=== PATIENT | male | born 1950 | race Caucasian/White ===

== ENCOUNTER 2018-04-11 10:14 | Inpatient (IN) | payer MEDICARE ==
[~2018-04-11] VITALS: Ht 193 cm; Wt 68.1 kg
--- NOTE | 2018-04-11 10:48 | NUR ---
PT C/O LEFT ARM PIT PAIN THAT ORIGINATED ABOUT A MONTH AGO THAT HAS GRADUALLY SPREAD TO REST OF CHEST. PAIN IS REPRODUCIBLE WITH MOVEMENT, BREATHING, AND PALPATION AT LEFT ARMPIT AND RIGHT SIDE OF CHEST. PT DENIES RECENT TRAVEL. PT ON MONITOR. EKG DONE.
[2018-04-11] MEDS ORDERED: KETOROLAC 30 MG/1 ML IVPush ONE (11:00)
[2018-04-11] MEDS ORDERED: LORazepam 2 MG/ML, 1ML IVP ONE (11:00)
[2018-04-11] MEDS ORDERED: SODIUM CHLORIDE FLUSH 10ML SYR IVF ONE (11:00)
[2018-04-11] MEDS ORDERED: KETOROLAC 30 MG/1 ML ONE (11:01)
[2018-04-11] MEDS ORDERED: LORazepam 2 MG/ML, 1ML ONE (11:02)
[2018-04-11 11:25] LABS: MEAN CORPUSCULAR HEMOGLOBIN 31.5 pg (27.5-34.5); MEAN CORPUSCULAR HGB CONC 33.6 g/dL (33.2-36.2); MEAN CORPUSCULAR VOLUME 93.6 fL (81-97); MEAN PLATELET VOLUME 7.3 fL (7.4-10.4); PLATELET COUNT 289 x10^3/uL (130-400); RED BLOOD COUNT 4.48 x10^6/uL (4.38-5.82); RED CELL DISTRIBUTION WIDTH 13.9 % (9.4-14.8)
[2018-04-11 11:37] LABS: ALBUMIN 2.1 g/dL (3.4-5.0); ANION GAP 8 mmol/L (5-15); CALCIUM 7.7 mg/dL (8.5-10.1); CHLORIDE 105 mmol/L (98-107)
--- NOTE | 2018-04-11 11:38 | NUR ---
PT SLEEPING IN NAD. WAITING FOR LAB RESULTS.
[2018-04-11 11:42] LABS: ALANINE AMINOTRANSFERASE 67 U/L (12-78); BILIRUBIN,TOTAL 0.9 mg/dL (0.2-1.0); CREATININE 0.85 mg/dL (0.7-1.3); TOTAL PROTEIN 6.2 g/dL (6.4-8.2); TROPONIN I < 0.015 ng/mL (0.000-0.045)
[2018-04-11 11:55] LABS: ALKALINE PHOSPHATASE 1710 U/L (45-117)
[2018-04-11 11:56] LABS: MD YES
[2018-04-11 11:57] LABS: BAND#(MANUAL) 0.98 x10^3/uL; BANDS%(MANUAL) 6 % (0-7); EOS#(MANUAL) 0.16 x10^3/uL (0.0-0.4); EOS% (MANUAL) 1 % (1-7); METAMYELOCYTES# (MANUAL) 0.33 x10^3/uL (0-0); METAMYELOCYTES% (MANUAL) 2 % (0-1)
[2018-04-11 11:58] LABS: LYMPH#(MANUAL) 3.44 x10^3/uL (1-3.4); LYMPHS% (MANUAL) 21 % (22-44); MONOS#(MANUAL) 1.64 x10^3/uL (0.3-2.7); MONOS% (MANUAL) 10 % (2-9); SEG#(MANUAL) 9.84 x10^3/uL (1.8-6.8); SEGS% (MANUAL) 60 % (42-75)
[2018-04-11 11:59] LABS: POLYCHROMASIA 1+
[2018-04-11 12:00] LABS: <PLATELET ESTIMATE> ADEQUATE; <PLT MORPHOLOGY> NORMAL PLT MORPH
--- NOTE | 2018-04-11 12:44 | NUR ---
PT TO CT. PT HAD D-DIMER OVER 26.
[2018-04-11] MEDS ORDERED: OMNIPAQUE 350 MG/ML, 100ML BOTTLE ONE (13:05)
[2018-04-11] MEDS ORDERED: SODIUM CHLORIDE 0.9% 1,000ML IVBOLUS ONE (13:30)
--- NOTE | 2018-04-11 13:42 | NUR ---
PT RESTING IN BED IN NAD. VSS. PT NOTIFIED SPOUSE IS ON HER WAY BACK TO SEE PT.
--- NOTE | 2018-04-11 14:30 | NUR ---
DR. TALAMANTES AT BEDSIDE WITH SPOUSE AND PT.
[2018-04-11] MEDS ORDERED: OXYC30TA66 PO (14:40)
[2018-04-11] MEDS ORDERED: LACT10SO28 PO (14:40)
[2018-04-11] MEDS ORDERED: LYRICA PO (14:40)
[2018-04-11] MEDS ORDERED: METO25TA35 PO (14:40)
--- NOTE | 2018-04-11 14:55 | NUR ---
MEAL TRAY ORDERED FOR PT. PT GIVEN ANOTHER WARM BLANKET FOR COMFORT. 3 P'S ADDRESSED.
[2018-04-11] MEDS ORDERED: GABAPENTIN 300 MG CAPSULE PO PRN (15:00)
[2018-04-11] MEDS ORDERED: BISACODYL 10 MG SUPP PR PRN (15:00)
[2018-04-11] MEDS ORDERED: LABETALOL 5MG/ML, 20ML IVPush PRN (15:00)
[2018-04-11] MEDS ORDERED: ONDANSETRON ODT 4 MG PO PRN (15:00)
[2018-04-11] MEDS ORDERED: PROMETHAZINE 25 MG/ML, 1ML IM PRN (15:00)
[2018-04-11] MEDS ORDERED: hydrALAzine 20 MG/ML, 1ML IVPush PRN (15:00)
[2018-04-11] MEDS ORDERED: ONDANSETRON 2MG/ML, 2ML IVPush PRN (15:00)
[2018-04-11] MEDS ORDERED: POLYETHYLENE GLYCOL 17 GM PACKET PO PRN (15:00)
[2018-04-11 15:54] LABS: FREE T4 (FREE THYROXINE) 1.19 ng/dL (0.76-1.46); HEMOGLOBIN A1C 5.7 % (4.2-6.3); THYROID STIMULATING HORMONE 0.314 mIU/L (0.358-3.740)
--- NOTE | 2018-04-11 16:00 | NUR ---
PT GIVEN MEAL TRAY. WAITING FOR BED ASSIGNEMENT ON THE FLOOR.
[2018-04-11 16:54] VITALS: BP 156/66
[2018-04-11 16:58] LABS: MICROSCOPIC NOT IND
[2018-04-11 17:09] LABS: CULTURE INDICATED? NO
[2018-04-11] MEDS: NICOTINE 7 MG/24 HR PATCH.TD24 TD SCH ×2 (18:02→21:41)
[2018-04-11] MEDS: SODIUM CHLORIDE 0.9% 1,000 ML IV SCH (18:03)
[2018-04-11] MEDS: HEPARIN 5,000 UNITS/ML, 1ML SQ SCH (18:03)
[2018-04-11] MEDS: OXYcodone IR 5MG TABLET PO PRN ×2 (19:36→23:52)
[2018-04-11 20:00] VITALS: BP 153/78
[2018-04-11] MEDS: morphine SULFATE 10 MG/ML, 1ML IVPush PRN (21:45)
[2018-04-12 01:43] VITALS: BP 155/79
[2018-04-12] MEDS: HEPARIN 5,000 UNITS/ML, 1ML SQ SCH ×3 (02:00→17:11)
[2018-04-12] MEDS: OXYcodone IR 5MG TABLET PO PRN ×4 (03:49→22:48)
[2018-04-12] MEDS: SODIUM CHLORIDE 0.9% 1,000 ML IV SCH (03:50)
[2018-04-12 05:49] LABS: ANION GAP 7 mmol/L (5-15); CALCIUM 7.8 mg/dL (8.5-10.1); CHLORIDE 108 mmol/L (98-107)
[2018-04-12 06:04] LABS: MEAN CORPUSCULAR HEMOGLOBIN 31.9 pg (27.5-34.5); MEAN CORPUSCULAR HGB CONC 33.8 g/dL (33.2-36.2); MEAN CORPUSCULAR VOLUME 94.4 fL (81-97); MEAN PLATELET VOLUME 7.9 fL (7.4-10.4); PLATELET COUNT 280 x10^3/uL (130-400); RED BLOOD COUNT 3.96 x10^6/uL (4.38-5.82)
[2018-04-12 06:05] LABS: ALANINE AMINOTRANSFERASE 62 U/L (12-78); ALKALINE PHOSPHATASE 1530 U/L (45-117); BILIRUBIN,TOTAL 0.9 mg/dL (0.2-1.0); CHOL/HDL RATIO 5.3; CHOLESTEROL, TOTAL 127 mg/dL (140-239); HDL CHOL % 19 % (26-37); HDL CHOLESTEROL (DIRECT) 24 mg/dL (40-60); LDL CHOLESTEROL,CALCULATED 81 mg/dL (54-169); LDL/HDL RATIO 3.4 (0.5-3.0); TOTAL PROTEIN 5.6 g/dL (6.4-8.2); TRIGLYCERIDES 109 mg/dL (50-200); VLDL CHOLESTEROL 22 mg/dL (0-25)
[2018-04-12 07:07] LABS: MD YES
[2018-04-12 07:18] LABS: BAND#(MANUAL) 2.04 x10^3/uL; BANDS%(MANUAL) 12 % (0-7); BASOS#(MANUAL) 0.17 x10^3/uL (0-0.1); BASOS% (MANUAL) 1 % (0-1); EOS#(MANUAL) 0.34 x10^3/uL (0.0-0.4); EOS% (MANUAL) 2 % (1-7); LYMPH#(MANUAL) 4.08 x10^3/uL (1-3.4); LYMPHS% (MANUAL) 24 % (22-44); METAMYELOCYTES# (MANUAL) 0.85 x10^3/uL (0-0); METAMYELOCYTES% (MANUAL) 5 % (0-1); MONOS#(MANUAL) 1.53 x10^3/uL (0.3-2.7); MONOS% (MANUAL) 9 % (2-9); MYELOCYTES# (MANUAL) 0.51 x10^3/uL (0-0); MYELOCYTES% (MANUAL) 3 % (0-0); SEG#(MANUAL) 7.48 x10^3/uL (1.8-6.8); SEGS% (MANUAL) 44 % (42-75)
[2018-04-12 07:20] LABS: <PLATELET ESTIMATE> ADEQUATE; <PLT MORPHOLOGY> NORMAL PLT MORPH; POLYCHROMASIA 1+; TOXIC GRAN 1+
[2018-04-12 07:59] VITALS: BP 131/71
[2018-04-12] MEDS ORDERED: LISI1TAB5 PO (11:26)
[2018-04-12 13:41] LABS: HCT (SEDRATE) 36.7 % (39.2-51.8)
[2018-04-12 14:47] VITALS: BP 143/57
[2018-04-12 16:19] LABS: MICROSCOPIC NOT IND
[2018-04-12 16:23] LABS: CULTURE INDICATED? NO
[2018-04-12] MEDS: morphine SULFATE 10 MG/ML, 1ML IVPush PRN ×2 (17:11→20:41)
[2018-04-12 17:13] VITALS: BP 156/77
[2018-04-12 18:33] VITALS: BP 160/67
[2018-04-12 19:22] VITALS: BP 155/72
[2018-04-12] MEDS: PREGABALIN 150 MG CAPSULE PO SCH (19:31)
[2018-04-12] MEDS: ZOLPIDEM 5MG TABLET PO PRN (22:37)
[2018-04-13 04:00] VITALS: BP 135/77
[2018-04-13] MEDS: OXYcodone IR 5MG TABLET PO PRN ×4 (04:31→18:44)
[2018-04-13] MEDS: HEPARIN 5,000 UNITS/ML, 1ML SQ SCH ×3 (04:33→19:57)
[2018-04-13 04:56] LABS: MEAN CORPUSCULAR HEMOGLOBIN 31.3 pg (27.5-34.5); MEAN CORPUSCULAR HGB CONC 33.2 g/dL (33.2-36.2); MEAN CORPUSCULAR VOLUME 94.2 fL (81-97); MEAN PLATELET VOLUME 7.6 fL (7.4-10.4); PLATELET COUNT 307 x10^3/uL (130-400); RED BLOOD COUNT 3.93 x10^6/uL (4.38-5.82)
[2018-04-13 05:00] LABS: ANION GAP 6 mmol/L (5-15); CALCIUM 7.7 mg/dL (8.5-10.1); CHLORIDE 108 mmol/L (98-107); CREATININE 0.72 mg/dL (0.7-1.3)
[2018-04-13 05:44] LABS: MD YES
[2018-04-13 05:46] LABS: BAND#(MANUAL) 1.29 x10^3/uL; BANDS%(MANUAL) 8 % (0-7); MONOS#(MANUAL) 1.13 x10^3/uL (0.3-2.7); MONOS% (MANUAL) 7 % (2-9)
[2018-04-13 05:47] LABS: EOS#(MANUAL) 0.32 x10^3/uL (0.0-0.4); EOS% (MANUAL) 2 % (1-7); LYMPH#(MANUAL) 4.03 x10^3/uL (1-3.4); LYMPHS% (MANUAL) 25 % (22-44)
[2018-04-13 05:48] LABS: <PLATELET ESTIMATE> ADEQUATE; <PLT MORPHOLOGY> NORMAL PLT MORPH; METAMYELOCYTES# (MANUAL) 0.64 x10^3/uL (0-0); METAMYELOCYTES% (MANUAL) 4 % (0-1); MYELOCYTES# (MANUAL) 0.32 x10^3/uL (0-0); MYELOCYTES% (MANUAL) 2 % (0-0); POLYCHROMASIA 1+; SEG#(MANUAL) 8.37 x10^3/uL (1.8-6.8); SEGS% (MANUAL) 52 % (42-75)
[2018-04-13 07:50] VITALS: BP 154/79
[2018-04-13] MEDS: PREGABALIN 150 MG CAPSULE PO SCH ×2 (10:07→19:59)
[2018-04-13] MEDS: LISINOPRIL 20 MG TABLET PO SCH (10:07)
[2018-04-13] MEDS: HYDROCHLOROTHIAZIDE 12.5 MG CAPSULE PO SCH (10:07)
[2018-04-13] MEDS: BICALUTAMIDE 50 MG TABLET PO SCH (13:05)
[2018-04-13 14:00] VITALS: BP 155/69
[2018-04-13] MEDS: NICOTINE 7 MG/24 HR PATCH.TD24 TD SCH (15:00)
[2018-04-13] MEDS: morphine SULFATE 10 MG/ML, 1ML IVPush PRN (17:20)
[2018-04-13] MEDS: DOCUSATE 100 MG CAPSULE PO PRN (19:58)
[2018-04-13 21:11] VITALS: BP 132/49
[2018-04-14] MEDS: OXYcodone IR 5MG TABLET PO PRN ×2 (01:28→06:14)
[2018-04-14 01:40] VITALS: BP 132/69
[2018-04-14] MEDS: HEPARIN 5,000 UNITS/ML, 1ML SQ SCH ×3 (04:44→20:49)
[2018-04-14 04:52] LABS: MEAN CORPUSCULAR HEMOGLOBIN 31.1 pg (27.5-34.5); MEAN CORPUSCULAR HGB CONC 33.5 g/dL (33.2-36.2); MEAN CORPUSCULAR VOLUME 92.6 fL (81-97); MEAN PLATELET VOLUME 7.3 fL (7.4-10.4); PLATELET COUNT 311 x10^3/uL (130-400); RED BLOOD COUNT 4.01 x10^6/uL (4.38-5.82); RED CELL DISTRIBUTION WIDTH 14.2 % (9.4-14.8)
[2018-04-14 05:01] LABS: ANION GAP 7 mmol/L (5-15); CALCIUM 7.6 mg/dL (8.5-10.1); CHLORIDE 106 mmol/L (98-107)
[2018-04-14 05:02] LABS: CREATININE 0.74 mg/dL (0.7-1.3)
[2018-04-14 05:59] LABS: MD YES
[2018-04-14 06:00] LABS: BAND#(MANUAL) 1.49 x10^3/uL; BANDS%(MANUAL) 8 % (0-7); EOS#(MANUAL) 0.19 x10^3/uL (0.0-0.4); EOS% (MANUAL) 1 % (1-7); LYMPH#(MANUAL) 3.72 x10^3/uL (1-3.4); LYMPHS% (MANUAL) 20 % (22-44)
[2018-04-14 06:01] LABS: METAMYELOCYTES# (MANUAL) 0.37 x10^3/uL (0-0); METAMYELOCYTES% (MANUAL) 2 % (0-1); MONOS#(MANUAL) 1.86 x10^3/uL (0.3-2.7); MONOS% (MANUAL) 10 % (2-9); MYELOCYTES# (MANUAL) 0.19 x10^3/uL (0-0); MYELOCYTES% (MANUAL) 1 % (0-0); POLYCHROMASIA 1+; SEG#(MANUAL) 10.79 x10^3/uL (1.8-6.8); SEGS% (MANUAL) 58 % (42-75)
[2018-04-14 06:02] LABS: <PLATELET ESTIMATE> ADEQUATE; <PLT MORPHOLOGY> NORMAL PLT MORPH
[2018-04-14 06:47] VITALS: BP 135/78
[2018-04-14] MEDS: LISINOPRIL 20 MG TABLET PO SCH (09:00)
[2018-04-14] MEDS: SODIUM CHLORIDE 0.9% 1,000 ML IV SCH (09:33)
[2018-04-14] MEDS: OxyconTIN ER 15 MG TAB.ER PO SCH ×2 (10:40→20:49)
[2018-04-14] MEDS: PREGABALIN 150 MG CAPSULE PO SCH ×2 (10:41→20:50)
[2018-04-14] MEDS: HYDROCHLOROTHIAZIDE 12.5 MG CAPSULE PO SCH (10:42)
[2018-04-14] MEDS: BICALUTAMIDE 50 MG TABLET PO SCH (10:55)
[2018-04-14] MEDS ORDERED: LORazepam 2 MG/ML, 1ML ONE (11:53)
[2018-04-14] MEDS ORDERED: LORazepam 2 MG/ML, 1ML IVPush ONE (12:00)
[2018-04-14] MEDS: NICOTINE 7 MG/24 HR PATCH.TD24 TD SCH (15:00)
[2018-04-14 16:03] VITALS: BP 130/75
[2018-04-14] MEDS: morphine SULFATE 10 MG/ML, 1ML IVPush PRN (17:11)
[2018-04-14] MEDS ORDERED: LIDOCAINE-MPF 1%, 5ML ONE (17:55)
[2018-04-14 19:07] VITALS: BP 142/67
[2018-04-14 20:32] LABS: GLUCOSE, CSF 51 mg/dL (40-80); TOTAL PROTEIN,CSF 44 mg/dL (15-45)
[2018-04-14] MEDS: ZOLPIDEM 5MG TABLET PO PRN (20:49)
[2018-04-15] MEDS: SODIUM CHLORIDE 0.9% 1,000 ML IV SCH (00:35)
[2018-04-15] MEDS: morphine SULFATE 10 MG/ML, 1ML IVPush PRN (00:51)
[2018-04-15] MEDS: OXYcodone IR 5MG TABLET PO PRN ×2 (00:52→05:05)
[2018-04-15 03:30] VITALS: BP 136/77
[2018-04-15] MEDS: HEPARIN 5,000 UNITS/ML, 1ML SQ SCH (04:50)
[2018-04-15] MEDS: DOCUSATE 100 MG CAPSULE PO PRN (05:12)
[2018-04-15 05:27] LABS: MEAN CORPUSCULAR HGB CONC 34.3 g/dL (33.2-36.2); MEAN CORPUSCULAR VOLUME 93.1 fL (81-97); MEAN PLATELET VOLUME 7.2 fL (7.4-10.4); PLATELET COUNT 341 x10^3/uL (130-400); RED BLOOD COUNT 4.32 x10^6/uL (4.38-5.82); RED CELL DISTRIBUTION WIDTH 14.4 % (9.4-14.8)
[2018-04-15 05:39] LABS: ANION GAP 8 mmol/L (5-15); CHLORIDE 108 mmol/L (98-107)
[2018-04-15 05:40] LABS: CREATININE 0.86 mg/dL (0.7-1.3)
[2018-04-15 05:50] LABS: MD YES
[2018-04-15 05:52] LABS: BAND#(MANUAL) 1.71 x10^3/uL; BANDS%(MANUAL) 8 % (0-7); EOS#(MANUAL) 0.43 x10^3/uL (0.0-0.4); EOS% (MANUAL) 2 % (1-7); LYMPH#(MANUAL) 5.14 x10^3/uL (1-3.4); LYMPHS% (MANUAL) 24 % (22-44); METAMYELOCYTES# (MANUAL) 1.07 x10^3/uL (0-0); METAMYELOCYTES% (MANUAL) 5 % (0-1); MONOS#(MANUAL) 1.28 x10^3/uL (0.3-2.7); MONOS% (MANUAL) 6 % (2-9); MYELOCYTES# (MANUAL) 0.64 x10^3/uL (0-0); MYELOCYTES% (MANUAL) 3 % (0-0); SEG#(MANUAL) 11.13 x10^3/uL (1.8-6.8); SEGS% (MANUAL) 52 % (42-75)
[2018-04-15 05:53] LABS: POLYCHROMASIA 1+
[2018-04-15 05:54] LABS: <PLATELET ESTIMATE> ADEQUATE; <PLT MORPHOLOGY> NORMAL PLT MORPH
[2018-04-15 08:00] VITALS: BP 141/63
[2018-04-15] MEDS: PREGABALIN 150 MG CAPSULE PO SCH (08:03)
[2018-04-15] MEDS: OxyconTIN ER 15 MG TAB.ER PO SCH (08:03)
[2018-04-15] MEDS: LISINOPRIL 20 MG TABLET PO SCH (08:03)
[2018-04-15] MEDS: HYDROCHLOROTHIAZIDE 12.5 MG CAPSULE PO SCH (08:03)
[2018-04-15] MEDS ORDERED: BICA50TA5 PO (08:07)
== END 2018-04-15 08:40 | disposition home or self-care (01) | DRG 722 ==
LOC: ED 11:46 → EDIP 14:27 → 3NW 16:40
PROVIDERS: ADMIT Internal Medicine; ATTEND Internal Medicine
PROC: 009U3ZX Drainage of Spinal Canal, Percutaneous Approach, Diagnostic (ICD-10-PCS; principal; 2018-04-14)
PROC: B01B1ZZ Fluoroscopy of Spinal Cord using Low Osmolar Contrast (ICD-10-PCS; 2018-04-14)
DX: C61 Malignant neoplasm of prostate (principal); E43 Unspecified severe protein-calorie malnutrition; C79.51 Secondary malignant neoplasm of bone; Z68.1 Body mass index [BMI] 19.9 or less, adult; R07.9 Chest pain, unspecified; E83.51 Hypocalcemia; F17.210 Nicotine dependence, cigarettes, uncomplicated; G57.93 Unspecified mononeuropathy of bilateral lower limbs; G89.29 Other chronic pain; I10 Essential (primary) hypertension; N40.0 Benign prostatic hyperplasia without lower urinary tract symptoms; K76.9 Liver disease, unspecified; Z80.3 Family history of malignant neoplasm of breast; Z87.81 Personal history of (healed) traumatic fracture
CPT/HCPCS: 0399T; 36415; 71045; 71275; 72157; 72158; 74177; 77003; 80048; 80053; 80061; 81003; 82945; 83036; 83735; 84145; 84157; 84439; 84443; 84484; 85025; 85379; 85651; 86140; 87040; 87070; 87205; 88108; 89051; 93005; 93306; 96361; 96374; 96375; 99285; G0103; G0378; J1644; J1885; Q9967; J2060; J2270; J7030

== ENCOUNTER → 2018-05-14 | Outpatient (CLI) | payer MEDICARE ==
[~2018-05-14] MED LIST: BICA50TA5 PO; LACT10SO28 PO; LISI1TAB5 PO; LYRICA PO; METO25TA35 PO; OXYC30TA66 PO
== END | disposition home or self-care (01) ==
LOC: ROC 07:50
PROVIDERS: ATTEND Radiology Radiation Oncology
DX: C61 Malignant neoplasm of prostate (principal)
CPT/HCPCS: 99214; G0463

== ENCOUNTER → 2018-05-14 | Outpatient (CLI) | payer MEDICARE | END | disposition home or self-care (01) | LOC: RAD 14:07 | PROVIDERS: ATTEND Internal Medicine Hematology & Oncology | DX: I82.493 Acute embolism and thrombosis of other specified deep vein of lower extremity, bilateral (principal); C61 Malignant neoplasm of prostate; R60.9 Edema, unspecified; M79.89 Other specified soft tissue disorders | CPT/HCPCS: 93970 ==

== ENCOUNTER → 2018-09-02 | Outpatient (CLI) | payer MEDICARE ==
[~2018-09-02] MED LIST changes: +OMNIPAQUE 350 MG/ML, 100ML BOTTLE ONE
== END | disposition home or self-care (01) ==
LOC: CFH 10:42
PROVIDERS: ATTEND Internal Medicine Hematology & Oncology
DX: C61 Malignant neoplasm of prostate (principal); M47.816 Spondylosis without myelopathy or radiculopathy, lumbar region; M51.24 Other intervertebral disc displacement, thoracic region
CPT/HCPCS: 72157; 72158; 74177; Q9967

== ENCOUNTER 2018-10-15 12:20 | Outpatient (CLI) | payer MEDICARE | END 2018-10-15 23:59 | disposition home or self-care (01) | LOC: RAD 12:20 | PROVIDERS: ATTEND Internal Medicine Hematology & Oncology | DX: C79.51 Secondary malignant neoplasm of bone (principal); C61 Malignant neoplasm of prostate; J84.10 Pulmonary fibrosis, unspecified | CPT/HCPCS: 71111 ==

== ENCOUNTER 2019-03-07 11:35 | Inpatient (IN) | payer MEDICARE ==
[~2019-03-07] VITALS: Ht 193 cm; Wt 71.2 kg
[~2019-03-07 11:35] MED LIST changes: +LISI1TAB19 PO; -LISI1TAB5 PO; -OMNIPAQUE 350 MG/ML, 100ML BOTTLE ONE
--- NOTE | 2019-03-07 12:25 | NUR ---
PT HERE FOR INCREASING SWELLING IN ABDOMEN AND BLE. PT WITH STAGE IV LIVER CA. PT JAUNDICED, HAVING PAIN IN ABDOMEN D/T SWELLING. PT TO BP, CONT PULSE OX. AWAITING MD TO [place]
--- NOTE | 2019-03-07 13:12 | NUR ---
PT RESTING ON BED, AT BEDSIDE, VSS. AWAITING MD TO EVAL PT
[2019-03-07] MEDS ORDERED: HYDROmorphone 1 MG/ML, 1ML INJ ONE (13:25)
[2019-03-07] MEDS ORDERED: ONDANSETRON 2MG/ML, 2ML ONE (13:25)
[2019-03-07] MEDS ORDERED: ONDANSETRON 2MG/ML, 2ML IVPush ONE (13:30)
[2019-03-07] MEDS ORDERED: HYDROmorphone 2 MG/ML, 1ML IVPush PRN (13:30)
[2019-03-07] MEDS ORDERED: SODIUM CHLORIDE 0.9% 1,000ML IVBOLUS ONE (13:30)
[2019-03-07 13:47] LABS: ALANINE AMINOTRANSFERASE 37 U/L (12-78); ALBUMIN 1.3 g/dL (3.4-5.0); ANION GAP 12 mmol/L (5-15); CHLORIDE 101 mmol/L (98-107); INTERNATIONAL NORMALIZED RATIO 2.4 (0.93-1.1); PROTHROMBIN TIME 24.4 Seconds (9.6-11.5)
[2019-03-07 13:59] LABS: MEAN CORPUSCULAR HEMOGLOBIN 30.5 pg (27.5-34.5); MEAN CORPUSCULAR HGB CONC 33.7 g/dL (33.2-36.2); MEAN CORPUSCULAR VOLUME 90.7 fL (81-97); MEAN PLATELET VOLUME 7.5 fL (7.4-10.4); PLATELET COUNT 121 x10^3/uL (130-400); RED BLOOD COUNT 3.07 x10^6/uL (4.38-5.82)
[2019-03-07 14:01] LABS: ALKALINE PHOSPHATASE 989 U/L (45-117); TOTAL PROTEIN 4.4 g/dL (6.4-8.2)
[2019-03-07 14:02] LABS: RED CELL DISTRIBUTION WIDTH 27.8 % (9.4-14.8)
[2019-03-07 14:03] LABS: MD YES
[2019-03-07 14:09] LABS: BANDS%(MANUAL) 14 % (0-7); EOS#(MANUAL) 0.14 x10^3/uL (0.0-0.4); EOS% (MANUAL) 1 % (1-7); LYMPH#(MANUAL) 1.72 x10^3/uL (1-3.4); LYMPHS% (MANUAL) 12 % (22-44); METAMYELOCYTES# (MANUAL) 0.72 x10^3/uL (0-0); METAMYELOCYTES% (MANUAL) 5 % (0-1); MONOS#(MANUAL) 1.14 x10^3/uL (0.3-2.7); MONOS% (MANUAL) 8 % (2-9); MYELOCYTES# (MANUAL) 0.29 x10^3/uL (0-0); MYELOCYTES% (MANUAL) 2 % (0-0); NRBC % (MANUAL) 4 % (0-1); SEG#(MANUAL) 8.29 x10^3/uL (1.8-6.8); SEGS% (MANUAL) 58 % (42-75)
[2019-03-07 14:12] LABS: ANISOCYTOSIS 2+; POLYCHROMASIA 1+
[2019-03-07 14:13] LABS: <PLATELET ESTIMATE> DECREASED; <PLT MORPHOLOGY> NORMAL PLT MORPH
--- NOTE | 2019-03-07 14:15 | NUR ---
PT MEDICATED PER MAR, NOW RESTING ON GURNEY COMFORTABLY, AT BEDSIDE, NAD NOTED
--- NOTE | 2019-03-07 15:39 | NUR ---
PT RESTING IN BED, VISIBLE CHEST RISE AND FALL NOTED, NAD
--- NOTE | 2019-03-07 16:57 | NUR ---
ABD US BEING COMPLETED AT BEDSIDE, VSS, NAD NOTED
--- NOTE | 2019-03-07 17:40 | NUR ---
TASK RN: REPORT GIVEN TO SONIA IQBAL.
[2019-03-07] MEDS: NICOTINE 14MG/24 HR PATCH.TD24 TD SCH (18:00)
[2019-03-07] MEDS ORDERED: BISACODYL 10 MG SUPP PR PRN (18:00)
[2019-03-07] MEDS ORDERED: POLYETHYLENE GLYCOL 17 GM PACKET PO PRN (18:00)
[2019-03-07] MEDS: SODIUM CHLORIDE 0.9% 1,000 ML IV SCH (18:35)
[2019-03-07 19:13] VITALS: BP 149/71
[2019-03-07] MEDS: CEFTRIAXONE PMX 1GM/50ML 50 ML IV SCH (21:19)
[2019-03-07] MEDS: DEXTROSE 50%, 50ML SYRINGE IVPush PRN ×2 (21:25→21:56)
[2019-03-07 21:49] VITALS: BP 177/84
[2019-03-07 21:59] LABS: CULTURE INDICATED? YES; MICROSCOPIC INDICATED
[2019-03-07] MEDS: SODIUM CHLORIDE FLUSH 10ML SYR IVF SCH (22:00)
[2019-03-07] MEDS ORDERED: GLUCAGON 1 MG IM PRN (22:00)
[2019-03-07] MEDS ORDERED: DEXTROSE 4 GM TAB.CHEW PO PRN (22:00)
[2019-03-07 22:21] LABS: ANION GAP 14 mmol/L (5-15); CALCIUM 7.2 mg/dL (8.5-10.1); CHLORIDE 102 mmol/L (98-107); CREATININE 1.38 mg/dL (0.7-1.3)
[2019-03-07 22:22] LABS: INTERNATIONAL NORMALIZED RATIO 2.51 (0.93-1.1); PROTHROMBIN TIME 25.4 Seconds (9.6-11.5)
[2019-03-07 22:23] LABS: MEAN CORPUSCULAR HEMOGLOBIN 29.9 pg (27.5-34.5); MEAN CORPUSCULAR HGB CONC 32.5 g/dL (33.2-36.2); MEAN PLATELET VOLUME 7.8 fL (7.4-10.4); PLATELET COUNT 116 x10^3/uL (130-400); RED BLOOD COUNT 2.95 x10^6/uL (4.38-5.82); RED CELL DISTRIBUTION WIDTH 27.5 % (9.4-14.8)
[2019-03-07] MEDS ORDERED: LEVETIRACETAM 1,000 MG in SODIUM CHLORIDE 0.9% 100 ML IV ONE (22:30)
[2019-03-07 22:42] LABS: MD YES
[2019-03-07] MEDS: DEXAMETHASONE 4 MG/ML, 1ML IVPush SCH (22:55)
[2019-03-07] MEDS: AZITHROMYCIN 500 MG in SODIUM CHLORIDE 0.9% 250 ML IV SCH (23:30)
[2019-03-07 23:34] LABS: <PLATELET ESTIMATE> DECREASED; <PLT MORPHOLOGY> NORMAL PLT MORPH; ANISOCYTOSIS 2+; BAND#(MANUAL) 1.51 x10^3/uL; BANDS%(MANUAL) 10 % (0-7); LYMPH#(MANUAL) 0.91 x10^3/uL (1-3.4); LYMPHS% (MANUAL) 6 % (22-44); METAMYELOCYTES# (MANUAL) 0.91 x10^3/uL (0-0); METAMYELOCYTES% (MANUAL) 6 % (0-1); MONOS#(MANUAL) 1.06 x10^3/uL (0.3-2.7); MONOS% (MANUAL) 7 % (2-9); MYELOCYTES% (MANUAL) 2 % (0-0); NRBC % (MANUAL) 6 % (0-1); POLYCHROMASIA 1+; SEG#(MANUAL) 10.42 x10^3/uL (1.8-6.8); SEGS% (MANUAL) 69 % (42-75)
[2019-03-08 00:13] VITALS: BP 157/67
[2019-03-08] MEDS ORDERED: MORPHINE SULFATE 4 MG/ML, 1ML ONE (00:19)
[2019-03-08] MEDS: MORPHINE SULFATE 4 MG/ML, 1ML IVPush PRN ×9 (00:21→20:07)
[2019-03-08] MEDS: SODIUM CHLORIDE 0.9% 1,000 ML IV SCH ×2 (04:21→15:12)
[2019-03-08] MEDS: DEXAMETHASONE 4 MG/ML, 1ML IVPush SCH ×3 (04:21→17:00)
[2019-03-08 05:40] LABS: ALBUMIN 1.3 g/dL (3.4-5.0); ANION GAP 13 mmol/L (5-15); CALCIUM 6.9 mg/dL (8.5-10.1); CHLORIDE 102 mmol/L (98-107)
[2019-03-08 05:56] LABS: ALANINE AMINOTRANSFERASE 36 U/L (12-78); ALKALINE PHOSPHATASE 942 U/L (45-117); BILIRUBIN,TOTAL 12.4 mg/dL (0.2-1.0); CREATININE 1.31 mg/dL (0.7-1.3); TOTAL PROTEIN 4.2 g/dL (6.4-8.2)
[2019-03-08 06:35] LABS: MEAN CORPUSCULAR HEMOGLOBIN 30.4 pg (27.5-34.5); MEAN CORPUSCULAR HGB CONC 33.3 g/dL (33.2-36.2); MEAN CORPUSCULAR VOLUME 91.2 fL (81-97); RED BLOOD COUNT 2.89 x10^6/uL (4.38-5.82); RED CELL DISTRIBUTION WIDTH 26.9 % (9.4-14.8)
[2019-03-08 06:42] LABS: PLATELET COUNT 86 x10^3/uL (130-400)
[2019-03-08 06:43] LABS: MEAN PLATELET VOLUME 7.6 fL (7.4-10.4)
[2019-03-08 06:47] LABS: MD YES
[2019-03-08 06:49] LABS: BAND#(MANUAL) 2.02 x10^3/uL; BANDS%(MANUAL) 14 % (0-7); EOS#(MANUAL) 0.14 x10^3/uL (0.0-0.4); EOS% (MANUAL) 1 % (1-7); LYMPH#(MANUAL) 1.73 x10^3/uL (1-3.4); LYMPHS% (MANUAL) 12 % (22-44); MONOS#(MANUAL) 0.43 x10^3/uL (0.3-2.7); MONOS% (MANUAL) 3 % (2-9); NRBC % (MANUAL) 4 % (0-1)
[2019-03-08 06:51] LABS: MYELOCYTES# (MANUAL) 0.43 x10^3/uL (0-0); MYELOCYTES% (MANUAL) 3 % (0-0)
[2019-03-08 06:52] LABS: METAMYELOCYTES# (MANUAL) 0.58 x10^3/uL (0-0); METAMYELOCYTES% (MANUAL) 4 % (0-1); SEG#(MANUAL) 9.07 x10^3/uL (1.8-6.8); SEGS% (MANUAL) 63 % (42-75)
[2019-03-08 06:53] LABS: ANISOCYTOSIS 2+; POLYCHROMASIA 1+
[2019-03-08 06:54] LABS: <PLATELET ESTIMATE> DECREASED; <PLT MORPHOLOGY> NORMAL PLT MORPH
[2019-03-08 07:16] VITALS: BP 128/54
[2019-03-08] MEDS ORDERED: CALCIUM GLUCONATE 4.6 MEQ/10 ML IVPush ONE (08:00)
[2019-03-08] MEDS ORDERED: DEXTROSE 50%, 50ML SYRINGE IVPush ONE ×3 (08:00→23:00)
[2019-03-08] MEDS ORDERED: CALCIUM GLUCONATE 4.6 MEQ in SODIUM CHLORIDE 0.9% 50 ML IV ONE ×2 (08:30→23:00)
[2019-03-08] MEDS: SODIUM CHLORIDE FLUSH 10ML SYR IVF SCH ×2 (08:42→21:45)
[2019-03-08] MEDS ORDERED: SENNA/DOCUSATE TABLET PO SCH (09:00)
[2019-03-08] MEDS: INSULIN REGULAR 100 UNITS/ML, 3ML VIAL SQ-INSULIN SCH ×2 (11:00→17:11)
[2019-03-08] MEDS: LEVETIRACETAM 500 MG TABLET PO SCH ×2 (11:10→21:45)
[2019-03-08] MEDS: ONDANSETRON ODT 4 MG PO PRN ×2 (11:10→15:13)
[2019-03-08 11:19] VITALS: BP 136/51
[2019-03-08 12:58] LABS: ANION GAP 18 mmol/L (5-15); CALCIUM 7.1 mg/dL (8.5-10.1); CHLORIDE 101 mmol/L (98-107); CREATININE 1.54 mg/dL (0.7-1.3)
[2019-03-08] MEDS ORDERED: INSULIN REGULAR 100 UNITS/ML, 3ML VIAL IVPush ONE ×2 (13:30→23:00)
[2019-03-08] MEDS ORDERED: SODIUM BICARBONATE 1 MEQ/ML, 50ML VIAL IVPush ONE (13:30)
[2019-03-08] MEDS ORDERED: FUROSEMIDE 40 MG/4 ML IV ONE (14:00)
[2019-03-08 14:30] VITALS: BP 130/79
[2019-03-08] MEDS ORDERED: PHARMACY MAY ADJ FOR RENAL FX MC PRN (15:00)
[2019-03-08] MEDS ORDERED: PANTOPROZOLE 40MG TABLET PO SCH (15:00)
[2019-03-08] MEDS ORDERED: CALCIUM CARBONATE 500 MG TAB.CHEW PO PRN (15:00)
[2019-03-08] MEDS: LACTULOSE 20 GM/30 ML UDC PO SCH ×2 (15:15→21:45)
[2019-03-08 15:34] LABS: BILIRUBIN,INDIRECT 1.7 mg/dL (0.0-2.0); BILIRUBIN,TOTAL 12.5 mg/dL (0.2-1.0)
[2019-03-08 15:43] LABS: BILIRUBIN, DIRECT 10.8 mg/dL (0.1-0.2)
[2019-03-08] MEDS: NICOTINE 14MG/24 HR PATCH.TD24 TD SCH (17:54)
[2019-03-08 17:57] LABS: CHLORIDE 102 mmol/L (98-107)
[2019-03-08] MEDS ORDERED: OXYcodone IR 5MG TABLET PO PRN (18:00)
[2019-03-08 18:22] LABS: ANION GAP 16 mmol/L (5-15)
[2019-03-08 18:24] LABS: CALCIUM 7.4 mg/dL (8.5-10.1); CREATININE 1.53 mg/dL (0.7-1.3)
[2019-03-08 19:11] VITALS: BP 132/81
[2019-03-08] MEDS ORDERED: LACTULOSE 20 GM/30 ML UDC PO SCH (21:00)
[2019-03-08 21:39] LABS: ANION GAP 15 mmol/L (5-15); CALCIUM 7.5 mg/dL (8.5-10.1); CHLORIDE 102 mmol/L (98-107); CREATININE 1.51 mg/dL (0.7-1.3)
[2019-03-08] MEDS: CEFTRIAXONE PMX 1GM/50ML 50 ML IV SCH (21:45)
[2019-03-08] MEDS ORDERED: SODIUM POLYSTYRENE SULFONATE ORAL SUSP PO ONE (23:00)
[2019-03-09] MEDS: DEXAMETHASONE 4 MG/ML, 1ML IVPush SCH (00:01)
[2019-03-09] MEDS: AZITHROMYCIN 500 MG in SODIUM CHLORIDE 0.9% 250 ML IV SCH (00:02)
[2019-03-09 01:05] VITALS: BP 150/74
[2019-03-09] MEDS: MORPHINE SULFATE 4 MG/ML, 1ML IVPush PRN ×2 (01:06→05:25)
[2019-03-09 01:47] LABS: ANION GAP 16 mmol/L (5-15); CALCIUM 7.6 mg/dL (8.5-10.1); CHLORIDE 104 mmol/L (98-107); CREATININE 1.65 mg/dL (0.7-1.3)
[2019-03-09 02:36] VITALS: BP 151/84
[2019-03-09] MEDS ORDERED: LORazepam 2 MG/ML, 1ML ONE (03:15)
[2019-03-09 03:30] VITALS: BP 181/80
[2019-03-09] MEDS ORDERED: LORazepam 2 MG/ML, 1ML IVPush ONE (03:30)
[2019-03-09 03:48] VITALS: BP 201/110
[2019-03-09 04:00] VITALS: BP 214/84
[2019-03-09] MEDS ORDERED: LACTULOSE 3.3 GM/5 ML ORAL.SOL RC ONE (04:00)
[2019-03-09] MEDS ORDERED: SCOPOLAMINE PATCH, 1.5MG PATCH.TD72 TD ONE (07:00)
[2019-03-09] MEDS ORDERED: LORazepam 2 MG/ML, 1ML IVPush PRN (07:00)
[2019-03-09] MEDS ORDERED: MORPHINE SULFATE 4 MG/ML, 1ML IVPush PRN (07:00)
== END 2019-03-09 12:32 | disposition expired | DRG 432 ==
LOC: ED 14:08 → EDIP 17:22 → 4NW 18:32 → 4EST 03-08 10:00
PROVIDERS: ADMIT Internal Medicine; ATTEND Internal Medicine
PROC: 0T9B70Z Drainage of Bladder with Drainage Device, Via Natural or Artificial Opening (ICD-10-PCS; principal; 2019-03-07)
DX: K70.40 Alcoholic hepatic failure without coma (principal); J18.9 Pneumonia, unspecified organism; G93.41 Metabolic encephalopathy; E43 Unspecified severe protein-calorie malnutrition; R65.11 Systemic inflammatory response syndrome (SIRS) of non-infectious origin with acute organ dysfunction; E87.1 Hypo-osmolality and hyponatremia; C79.51 Secondary malignant neoplasm of bone; C78.00 Secondary malignant neoplasm of unspecified lung; E87.2 Acidosis; I50.32 Chronic diastolic (congestive) heart failure; N17.9 Acute kidney failure, unspecified; Z68.1 Body mass index [BMI] 19.9 or less, adult; G96.0 Cerebrospinal fluid leak; D32.9 Benign neoplasm of meninges, unspecified; C61 Malignant neoplasm of prostate; D64.9 Anemia, unspecified; D69.6 Thrombocytopenia, unspecified; E87.5 Hyperkalemia; F17.210 Nicotine dependence, cigarettes, uncomplicated; E11.42 Type 2 diabetes mellitus with diabetic polyneuropathy; I11.0 Hypertensive heart disease with heart failure; K70.31 Alcoholic cirrhosis of liver with ascites; Z51.5 Encounter for palliative care; R56.9 Unspecified convulsions; Z85.46 Personal history of malignant neoplasm of prostate
CPT/HCPCS: 36415; 70450; 71045; 74181; 76700; 80048; 80053; 81001; 82140; 82247; 82248; 82962; 83690; 84132; 85025; 85610; 85730; 87040; 87086; 93005; 96361; 96374; G0103; G0378; J0456; J0610; J0696; J1100; J1170; J1815; J1940; J1953; J2405; Q0162; J2060; J2270; J7030; J7050